=== PATIENT | male | born 1965 | race Caucasian/White ===

== ENCOUNTER → 2020-01-27 | Outpatient (CLI) | payer OTHER ==
--- NOTE | 2020-01-27 17:14 | RAD ---
MR#: [id number] Date of Study: 01/27/2020 Ordering Physician: WILVER MILLER, Referring Physician: AG YARBROUGH Tech: ALIDA Abdullahi APPROVED REPORT Test Type: Exercise Stress Nurse/Tech: Nasreen Reeves RN Test Indications: increased calcium score Cardiac History: family history Medications: See Electronic Medical Record Medical History: See Electronic Medical Record Resting ECG: SR Resting Heart Rate: 55 bpm Resting Blood Pressure: 137/89mmHg Pretest Chest Pain: None Nurse/Tech Notes lungs CTA, S1S2 Consent: The procedure was explained to the patient in lay terms. Informed consent was witnessed. Jhoan eout was entered into [employer]. History and Stress Test performed by LUCITA Jackson, ARRT (R) (N) Stress Symptoms Dyspnea POST EXERCISE Reason for Termination: Reached target heart rate Target HR: 139 Max HR: 148 bpm 90% of Maximum Predicted HR: 164 bpm Exercise duration: 9:21 min:sec, Stage Exercise capacity: 10METs Max Blood Pressure: 151/70mmHg Blood Pressure response to exercise: Normal blood pressure response during stress. Heart Rate response to exercise: normal response Chest Pain: No. Arrhythmia: Yes. PVC, PAC INTERPRETATION Stress EKG Conclusion: The resting EKG shows a sinus rhythm with mild nonspecific ST-T wave changes. The stress EKG shows no significant changes from baseline. It does have occasional PVCs. No EKG evidence of stress-induced ischemia. Imaging Protocol IMAGE PROTOCOL: Rest Tc-99m/stress Tc-99m 1 day Rest: Stress: Viability: Radiopharm.Tc99m AykwsoobpVj55w Sestamibi Mdoy45cSk 33mCi Duration 15min. 10min. Img Date 01/27/2020 01/27/2020 Inj-Img [id number]. 60min. Post-Injection Exercise: 1 minute Rest Admin Site:IV - Right AntecubitalAdministrator:LUCITA Jackson, ARRT (R)(N) Stress Admin Site: IV - Right AntecubitalAdministrator: LUCITA Jackson, ARRT (R)(N) STRESS DATA End Diast. Vol.146.0mlAv. Heart Rate77.0bpm End Syst. Vol.40.0mlCO Index BSA0.0L/min Myocardial Rfaw825.0gEject. Ypkgfjpu49.0% Stress Rates Pk. Fill Rate2.57EDV/secLVtime Pk. Fill 114.43msec Pk. Empty Rate3.00ESV/secLVtime Pk. Cugha356.34msec /3 Pk. Fill1.77EDV/sec Stress Scores Regional WT0.00Summed WT0.00 Regional WM0.00Summed WM2.00 LV Perfusion The stress scans showed no significant defects. The rest scans showed no significant defects. Nuclear imaging shows no reversible ischemia or infarct. Wall Motion Left ventricular systolic function is normal with no wall motion abnormalities and an ejection fracti on of greater than 70%. LV Perf. Quant 17 Seg. SSS1.00 17 Seg. SRS12.00 17 Seg. SDS0.00 Stress Defect Extent (% LAD)7.50Rest Defect Extent (% LAD)6.30Rev. Defect Extent (% LAD)1.30 Stress Defect Extent (% LCX) 0.00Rest Defect Extent (% LCX)22.50Rev. Defect Extent (% LCX)0.00 Stress Defect Extent (% RCA)0.00Rest Defect Extent (% RCA)51.10Rev. Defect Extent (% RCA)0.00 Stress Defect Extent (% MARY)2.60Rest Defect Extent (% MARY)20.90Rev. Defect Extent (% MARY)0.40 Conclusion 1. Good exercise tolerance with the patient walking for 9 minutes 21 seconds on a Jeff protocol. 2. No reported chest pain with exertion. 3. No EKG evidence of stress-induced ischemia. 4. Nuclear imaging shows no reversible ischemia or infarct. 5. Normal left ventricular systolic function with an ejection fraction of greater than 70%. 6. Low risk treadmill nuclear stress test. Signed by : Wilver Miller MD Electronically Approved : 01/27/2020 17:14:07
== END ==
LOC: NM 08:08
PROVIDERS: ATTEND Internal Medicine Cardiovascular Disease
DX: R07.9 Chest pain, unspecified (principal)
CPT/HCPCS: 78452; 93017; A9500